=== PATIENT | female | born 1965 | race Caucasian/White ===

== ENCOUNTER 2016-04-20 17:09 | Emergency (ER) | payer OTHER ==
[~2016-04-20] VITALS: Ht 162.6 cm; Wt 72.9 kg
[~2016-04-20 17:09] MED LIST: ATOR-54 PO; METO1TAB55 PO; RANI150T3 PO
[2016-04-20 17:12] VITALS: TEMP 36.7; Ht 162.6 cm; Wt 72.9 kg
[2016-04-20] MEDS ORDERED: HYDROCODONE/ACETAMOPHEN 5/325MG TAB PO STA (17:27)
[2016-04-20] MEDS ORDERED: ONDANSETRON 4MG OD TAB PO STA (17:27)
[2016-04-20] MEDS ORDERED: DEXL30CA5 PO (17:30)
[2016-04-20] MEDS ORDERED: DEXL60CA4 PO (17:34)
--- NOTE | 2016-04-20 17:49 | DIAGNOSTIC IMAGING REPORT ---
RIGHT HAND 3 VIEWS CLINICAL HISTORY: Right hand pain. No reported history of trauma. FINDINGS: 3 views of the right hand are obtained. No prior studies are available for comparison at the time of dictation. The skeletal structures are well mineralized. No fracture is seen. Mild degenerative narrowing is present at the radiocarpal articulation. The joint spaces of the hand are preserved. The overlying soft tissues are within normal limits. IMPRESSION: No acute bony abnormality is seen in the right hand. Electronically signed by: Mohit Garsia M.D. 04/20/2016 5:48 PM Dictated Date/Time: 04/20/2016 5:46 PM
--- NOTE | 2016-04-20 17:56 | EMERGENCY ROOM VISIT NOTE ---
ED Visit Note First contact with patient: 17:14 CHIEF COMPLAINT: Right hand pain HISTORY OF PRESENT ILLNESS: This 50-year-old female presents the ER with chief complaint of right hand pain. The patient states that the pain is mainly in the thumb and index finger. The patient denies any injury to the finger or hand. The patient states that she woke up this morning with the pain. She does admit that she uses her hands a lot at work. She is right-hand dominant. She denies any prior surgeries to her wrist or hand. REVIEW OF SYSTEMS: GENERAL: No fever or chills, easy fatigue, loss of appetite, or significant weight change. NEUROLOGICAL: No headache, change in mental status, weakness, numbness, or dizziness.. PMH: The patient's EMR was reviewed. There are no changes from prior visit. Please see chronic problem list SOCIAL HISTORY: Patient lives with her . The patient admits to tobacco use but denies any alcohol use. PHYSICAL EXAM: Vital Signs: Were reviewed Reviewed Nurse's notes. GENERAL: 50- year-old white female appears in no acute distress. MENTAL Status: Alert and oriented 3. RIGHT HAND: Gross bony deformity noted. There is slight swelling noted over the first and second metacarpal region. The skin is intact. Flexion and extension of the fingers is full and strong. EMERGENCY DEPARTMENT COURSE: The patient was evaluated. The patient was given [place] 5/325 mg and Zofran 4 mg ODT for associated nausea. X-ray of the right hand was ordered and interpreted by the radiologist and myself. DIAGNOSTICS:RIGHT HAND 3 VIEWS CLINICAL HISTORY: Right hand pain. No reported history of trauma. FINDINGS: 3 views of the right hand are obtained. No prior studies are available for comparison at the time of dictation. The skeletal structures are well mineralized. No fracture is seen. Mild degenerative narrowing is present at the radiocarpal articulation. The joint spaces of the hand are preserved. The overlying soft tissues are within normal limits. IMPRESSION: No acute bony abnormality is seen in the right hand. Electronically signed by: Mohit Garsia M.D. 04/20/2016 5:48 PM Dictated Date/Time: 04/20/2016 5:46 PM The patient was informed of the findings. The patient was placed in a thumb spica splint and discharged home in stable condition. DIAGNOSIS: Right hand pain DISCHARGE INSTRUCTIONS & TREATMENT: Keep hand in splint except for bathing until pain is tolerable without it. Ice intermittently to the affected area after repetitive use. Ibuprofen 600 mg every 6 hours with food for pain. Take [place] as needed for more severe pain. Do not drive while taking the [place]. Take Zofran as needed for associated nausea. If symptoms are not improving in 4 -5 days, follow-up with [facility] orthopedics Problem List Medical Problems: (1) Abdominal pain Status: Resolved (2) Chest pain Status: Resolved (3) Chest pain Status: Resolved (4) Dehydration Status: Resolved (5) Endometriosis Status: Chronic (6) Migraine Status: Chronic (7) Migraine Status: Resolved (8) Migraine Status: Resolved (9) Nausea & vomiting Status: Resolved (10) Vomiting Status: Resolved Surgical Problems: (1) H/O: hysterectomy Status: Resolved Current/Historical Medications Scheduled Atorvastatin (Lipitor), 20 MG PO QPM Dexlansoprazole (Dexilant), 60 MG PO QAM Metoclopramide Hcl (Reglan), 10 MG PO BID Allergies Coded Allergies: Aspirin (Verified Allergy, Intermediate, HIVES; HAS TOLERATED IBUPROFEN, ) Latex1 -Allergic Contact Dermititis (Verified Allergy, Intermediate, BROKE OUT WHEN TOUCHED LATEX, 04/20/16) Neomycin (Verified Allergy, Mild, 04/20/16) Penicillins (Verified Allergy, Mild, 04/20/16) Bacitracin (Verified Allergy, Unknown, SWELLING AND 3DEGREE MELO, 04/20/16) Tramadol (Verified Allergy, Unknown, VOMITTING, 04/20/16) Hydrocodone (Verified Adverse Reaction, Intermediate, patient states she gets sick to her stomach, 04/20/16) Vital Signs Date Time Temp Pulse Resp B/P Pulse Ox O2 Delivery O2 Flow Rate FiO2 04/20/16 17:12 36.7 93 20 157/94 99 Room Air Medications Administered Medications (Trade) Dose Ordered Sig/Leslie Route Start Time Stop Time Status Last Admin Dose Admin Acetaminophen/ Hydrocodone Bitart ([place] 5/325 Tab) 1 tab NOW STAT PO 04/20/16 17:27 04/20/16 17:29 DC 04/20/16 17:45 1 TAB Ondansetron HCl (Zofran Odt) 4 mg NOW STAT PO 04/20/16 17:27 04/20/16 17:29 DC 3/6/17 17:45 4 MG Departure Information Referrals All Leonardo M.D. (PCP) Patient Instructions [facility]
[2016-04-20] MEDS ORDERED: ONDA4TAB10 SL (17:58)
[2016-04-20] MEDS ORDERED: HYDR-5688 PO (17:58)
[2016-04-20 18:10] VITALS: BP 136/84; PULSE 80; O2SAT 99
== END 2016-04-20 18:12 | disposition home or self-care (01) ==
LOC: C.EDB 17:10 → C.EDD 18:12
DX: M79.641 Pain in right hand (principal)

== ENCOUNTER 2016-05-01 20:43 | Emergency (ER) | payer OTHER ==
[~2016-05-01] VITALS: Ht 162.6 cm; Wt 72.6 kg
[~2016-05-01 20:43] MED LIST changes: +DEXL60CA4 PO; +HYDR-5688 PO; +ONDA4TAB10 SL; -RANI150T3 PO
[2016-05-01 20:50] VITALS: TEMP 37; Ht 162.6 cm; Wt 72.6 kg
[2016-05-01] MEDS ORDERED: OXYCODONE/ACETAMINOPHEN 5-325 TAB PO STA (21:09)
[2016-05-01] MEDS ORDERED: OMEP40CA41 PO (21:41)
--- NOTE | 2016-05-01 21:43 | DIAGNOSTIC IMAGING REPORT ---
RIGHT KNEE 3 VIEWS CLINICAL HISTORY: Right knee pain Right pain COMPARISON: None. DISCUSSION: The bones and joint spaces appear intact. There is no evidence of fracture, dislocation or bony disease. There is no evidence for soft tissue swelling. IMPRESSION: Negative study. Electronically signed by: Vicente Menjivar M.D. 05/01/2016 9:42 PM Dictated Date/Time: 05/01/2016 9:41 PM
[2016-05-01] MEDS ORDERED: OXYC-57 PO (21:50)
[2016-05-01] MEDS ORDERED: PERCOCET HOME PACK PO STA (21:52)
--- NOTE | 2016-05-01 21:52 | EMERGENCY ROOM VISIT NOTE ---
History First contact with patient: 21:02 Chief Complaint: KNEEPAIN Stated Complaint: R KNEE PAIN History of Present Illness The patient is a 50 year old female who presents to the Emergency Room via private vehicle with complaints of "right knee pain". The patient states that earlier this morning, around 7:50 PM, she was asked in her car, and felt her right knee pop. She states that the right anterior knee, particularly the inferior region is a location of the pain that she rates as a 9/10. She denies any numbness or tingling in the distal extremity. Review of Systems A complete 6-point Review of Systems was discussed with the patient, with pertinent positives and negatives listed in the History of Present Illness. All remaining Review of Systems questions can be considered negative unless otherwise specified. Past Medical/Surgical History Medical Problems: (1) Abdominal pain (2) Chest pain (3) Chest pain (4) Dehydration (5) Endometriosis (6) Migraine (7) Migraine (8) Migraine (9) Nausea & vomiting (10) Vomiting Surgical Problems: (1) H/O: hysterectomy Family History Cancer Gallbladder disease Kidney disease or stones Social History Smoking Status: Current Every Day Smoker Alcohol Use: none Drug Use: marijuana Marital Status: Housing Status: lives with significant other Occupation Status: employed Current/Historical Medications Scheduled Atorvastatin (Lipitor), 20 MG PO QPM Metoclopramide Hcl (Reglan), 10 MG PO BID Omeprazole (Prilosec), 40 MG PO QAM Ondasetron Odt (Zofran Odt), 4 MG SL Q6H Scheduled PRN Oxycodone/Acetaminophen 5MG/325MG (Percocet 5MG/325MG), 1 TAB PO Q4H PRN for Pain Allergies Coded Allergies: Aspirin (Verified Allergy, Intermediate, HIVES; HAS TOLERATED IBUPROFEN, ) Latex1 -Allergic Contact Dermititis (Verified Allergy, Intermediate, BROKE OUT WHEN TOUCHED LATEX, 05/01/16) Neomycin (Verified Allergy, Mild, 05/01/16) Penicillins (Verified Allergy, Mild, 05/01/16) Bacitracin (Verified Allergy, Unknown, SWELLING AND 3DEGREE MELO, 05/01/16 ) Tramadol (Verified Allergy, Unknown, VOMITTING, 05/01/16) Hydrocodone (Verified Adverse Reaction, Intermediate, patient states she gets sick to her stomach, 05/01/16) Physical Exam Vital Signs Date Time Temp Pulse Resp B/P Pulse Ox O2 Delivery O2 Flow Rate FiO2 05/01/16 22:16 86 18 156/87 96 05/01/16 20:50 37.0 89 18 156/87 96 Room Air Physical Exam VITAL SIGNS - Vital signs and nursing notes were reviewed. Patient is afebrile , she is hypertensive at 156/87, she is not tachycardic and is saturating well on room air 96%. GENERAL -50-year-old female appearing her stated age who is in no acute distress. Communicates well with provider and answers questions appropriately. SKIN - Without rashes. No petechial rashes or evidence of an integument break overlying the right knee. EXTREMITIES - No clubbing or peripheral cyanosis. No pretibial edema present. She is neurovascularly intact in the right lower extremity. Potentially positive anterior drawer, with increased tenderness with this modality. No laxity medially or laterally. Range of motion of the right knee, particularly flexion is limited secondary to pain. +5/5 strength noted in UE/LE bilaterally. Patient is neurovascularly intact in the right lower extremity. Medical Decision & Procedures ER Provider Diagnostic Interpretation: RIGHT KNEE 3 VIEWS CLINICAL HISTORY: Right knee pain Right pain COMPARISON: None. DISCUSSION: The bones and joint spaces appear intact. There is no evidence of fracture, dislocation or bony disease. There is no evidence for soft tissue swelling. IMPRESSION: Negative study. Electronically signed by: Vicente Menjivar M.D. 05/01/2016 9:42 PM Dictated Date/Time: 05/01/2016 9:41 PM Medications Administered Medications (Trade) Dose Ordered Sig/Leslie Route Start Time Stop Time Status Last Admin Dose Admin Oxycodone/ Acetaminophen (Percocet 5-325mg Tab) 1 tab NOW STAT PO 05/01/16 21:09 05/01/16 21:11 DC 05/01/16 21:38 1 TAB Oxycodone/ Acetaminophen (Percocet 5/ 325MG Home Pack) 1 homepack UD STAT PO 05/01/16 21:52 05/01/16 21:53 DC 05/01/16 22:09 1 HOMEPACK Medical Decision Patient was seen and evaluated as above. After obtaining a thorough history and physical examination the patient presents with what appears to be right knee pain. Previous visit was reviewed. Patient requests something for pain therefore was given 1 Percocet tablet, as she notes that other types of medication will make her sick. Radiograph was obtained with results as above. No acute fracture. I suspect the patient may have injured the anterior cruciate ligament. She was placed in a knee immobilizer, and declined crutches , noting that she had these at home. She was given a home pack for Percocet with a short prescription sent to her pharmacy. She was checked in the [place] drug monitoring system, and no red flags were identified. While she was here, she was given 1 Percocet with excellent relief of her pain. She was also given ice packs. The patient was educated upon management, and states that she follows with Dr. jansen above for the left knee and notes she has an appointment coming up in the near future. I informed her to keep that appointment, and try to establish one sooner if possible. She is to not bear any weight on the affected knee. She was educated upon management, had questions answered prior to discharge, was educated upon worrisome symptoms in which to return, and was discharged home in good condition. In the evaluation and treatment of this patient, the following differential diagnoses were considered: Patellar Fracture, Tibial Plateau Fracture, Distal Femur Fracture, ACL Injury, PCL Injury, Collateral Ligament Injury, Pes Anserine Bursitis, [place] Fracture. [place] Drug Monitoring Program Search Results: patient reviewed within database, no issues identified Impression Primary Impression: Right knee pain Departure Information Dispostion Home / Self-Care Condition GOOD Prescriptions Oxycodone/Acetaminophen 5MG/325MG (PERCOCET 5MG/325MG) Tab 1 TAB PO Q4H Y for Pain, #15 TAB For Initial Treatment Prov: Mendez Esquivel PA-C 05/01/16 Referrals All Leonardo M.D. (PCP) Juan Taylor M.D. Patient Instructions [facility] Additional Instructions You have been treated in the Emergency Department for Knee Pain. You have received pain medicine in the emergency department which impairs your ability to operate a vehicle. It is illegal for you to drive after receiving these medicines. You have been prescribed Percocet to be used for pain control. This is a narcotic medication. You cannot drive or consume alcohol while on this medicine. This medicine should only be used for pain that cannot be controlled with dbyj-fuz-maproou pain medicines. DO NOT TAKE THIS WITH TYLENOL IT ALREADY HAS IT IN IT!!! For pain control, you can use the following [id number] medicines (if >12 yo): - Regular strength (200 mg/tab) Advil (ibuprofen) 1-2 tabs every 4-6 hours as needed. Do not exceed a dose of 3200 mg per day. If this is a recent injury (<24 hrs), ice can be applied to the area of pain for the first 3 days to help decrease pain and inflammation. Ice massages can be performed by freezing water in a paper cup, peeling back the cup to expose the ice and then massaging over the affected area. You have been provided the number for an Orthopaedic Surgeon. You should call this number as soon as possible to establish a follow-up visit from today's Emergency Department visit. Keep the knee brace in place until cleared by Orthopedics. Use the crutches you have to keep ALL weight off of the knee until weight bearing is tolerable. Return to the Emergency Department if your current symptoms worsen despite treatment course outlined above. Please return to the emergency department with any new/concerning symptoms. Problem Qualifiers Primary Impression: Right knee pain Chronicity: acute Qualified Codes: M25.561 - Pain in right knee
[2016-05-01 22:16] VITALS: BP 156/87; PULSE 86; O2SAT 96
== END 2016-05-01 22:17 | disposition home or self-care (01) ==
LOC: C.EDB 20:44 → C.EDD 22:17
DX: M25.561 Pain in right knee (principal); F17.200 Nicotine dependence, unspecified, uncomplicated; Z90.710 Acquired absence of both cervix and uterus

== ENCOUNTER → 2016-06-02 | Outpatient (CLI) | payer OTHER ==
[~2016-06-02] MED LIST changes: -HYDR-5688 PO; +LPT/20 PO; +METO10TA3 PO; +OMEP40CA41 PO; +OXYC-57 PO
--- NOTE | 2016-06-02 11:41 | DIAGNOSTIC IMAGING REPORT ---
Right upper quadrant ultrasound BILIARY ABDOMEN LIMITED CLINICAL HISTORY: R11.2 Severe nausea and vomiting that has lasted a long time nausea. Pain. TECHNIQUE: Ultrasound COMPARISON STUDY: 05/29/2015 FINDINGS: Small gallbladder polyp measuring 5 mm. No shadowing gallstones. Normal caliber bile ductal or common bile duct 5 mm. Mild fatty infiltration of liver. Pancreas and right kidney are unremarkable. No evidence for hydronephrosis. IMPRESSION: Small gallbladder polyp. Normal caliber bile duct. Mild fatty infiltration of liver. Electronically signed by: Vicente Menjivar M.D. 06/02/2016 11:39 AM Dictated Date/Time: 06/02/2016 11:37 AM
== END | disposition home or self-care (01) ==
LOC: C.ULTR 11:07
PROVIDERS: ATTEND Registered Nurse
DX: R11.2 Nausea with vomiting, unspecified (principal)

== ENCOUNTER → 2016-06-15 | Outpatient (CLI) | payer OTHER ==
[~2016-06-15] MED LIST changes: +SINCALIDE INJ 1.4 MCG in SODIUM CHLORIDE 0.9% 100ML 100 ML IV ONE
--- NOTE | 2016-06-15 12:24 | DIAGNOSTIC IMAGING REPORT ---
NUCLEAR MEDICINE HEPATOBILIARY SCAN WITH EJECTION FRACTION HISTORY: Pain. Nausea. R10.13 Acute epigastric painR93.8 Abnormal [id number] COMPARISON: Ultrasound dated 06/02/2016 TECHNIQUE: Immediately following the intravenous administration of 5.5 mCi Tc-99m Choletec, dynamic anterior abdominal imaging pre/post 1.4 mcg of Kinevac was performed. FINDINGS: Uniform hepatic tracer accumulation is shown. Prompt intrahepatic biliary excretion is seen. The gallbladder, common bile duct, and small bowel are all visualized by 20 minutes. This appearance represents the normal sequence of biliary excretion. The gallbladder ejection fraction following administration of Kinevac was 89 % (normal >35%). IMPRESSION: 1. No evidence for cystic duct obstruction. 2. Gallbladder ejection fraction calculated to be 89 %. Electronically signed by: Vicente Menjivar M.D. 06/15/2016 12:23 PM Dictated Date/Time: 06/15/2016 12:21 PM
== END | disposition home or self-care (01) ==
LOC: C.NUCL 10:01
PROVIDERS: ATTEND Registered Nurse
DX: R93.8 Abnormal findings on diagnostic imaging of other specified body structures (principal); R10.13 Epigastric pain

== ENCOUNTER → 2016-06-23 | Outpatient (CLI) | payer OTHER ==
[~2016-06-23] MED LIST changes: -SINCALIDE INJ 1.4 MCG in SODIUM CHLORIDE 0.9% 100ML 100 ML IV ONE
[2016-06-23 12:16] LABS: BASO % 0.5 %; BASO ABS # 0.04 K/uL (0-0.2); COMPLETE YES; HEMATOCRIT 42.5 % (37-47); IG% 0.1 %; LYMPH % 25.8 %; LYMPH ABS # 2.11 K/uL (1.2-3.4); MEAN CELL VOLUME 92.8 fL (80-100); MEAN CORPUSCULAR HEMOGLOBIN 30.8 pg (25-34); MEAN CORPUSCULAR HGB CONC 33.2 g/dl (32-36); MEAN PLATELET VOLUME 12.5 fL (7.4-10.4); MONO % 6.9 %; NEUT % 62.7 %; PLATELET COUNT 260 K/uL (130-400); RED BLOOD COUNT 4.58 M/uL (4.2-5.4); WHITE BLOOD COUNT 8.17 K/uL (4.8-10.8)
[2016-06-23 12:28] LABS: ALT/SGPT 42 U/L (12-78); AST/SGOT 15 U/L (15-37); BLOOD UREA NITROGEN 8 mg/dl (7-18); CARBON DIOXIDE 27 mmol/L (21-32); CHLORIDE 108 mmol/L (98-107); CREATININE 0.83 mg/dl (0.60-1.20); GLUCOSE 103 mg/dl (70-99); POTASSIUM 4.2 mmol/L (3.5-5.1); SODIUM 143 mmol/L (136-145)
[2016-06-23 12:34] LABS: ALB/GLOB RATIO 1.2 (0.9-2); ALKALINE PHOSPHATASE 125 U/L (45-117); CHOLESTEROL 221 mg/dl (0-200); CHOLESTEROL/HDL RATIO 3.9; HDL CHOLESTEROL 56 mg/dl; LDL CHOLESTEROL CALCULATED 136 mg/dl; TRIGLYCERIDES 145 mg/dl (0-150); VERY LOW DENSITY LIPOPROT CALC 29 mg/dl
== END | disposition home or self-care (01) ==
LOC: C.LABBFT 07:54
PROVIDERS: ATTEND Registered Nurse
DX: E78.5 Hyperlipidemia, unspecified (principal); R11.2 Nausea with vomiting, unspecified

== ENCOUNTER → 2016-07-02 | Outpatient (CLI) | payer OTHER ==
[2016-07-02 17:42] LABS: FERRITIN 27.2 ng/ml (8.0-388.0)
== END | disposition home or self-care (01) ==
LOC: C.LABBFT 11:34
PROVIDERS: ATTEND Physician Assistant Medical
DX: R11.2 Nausea with vomiting, unspecified (principal); M79.609 Pain in unspecified limb

== ENCOUNTER → 2016-07-10 | Outpatient (CLI) | payer OTHER ==
--- NOTE | 2016-07-10 15:30 | DIAGNOSTIC IMAGING REPORT ---
ABDOMEN AND PELVIS CT WITH IV AND ORAL CONTRAST CT DOSE: 496.75 mGycm HISTORY: Left upper quadrant abdominal pain. TECHNIQUE: Multiaxial CT images of the abdomen and pelvis were performed following the use of intravenous and oral contrast. COMPARISON STUDY: Abdominal ultrasound 06/02/2016. Abdomen and pelvis CT 11/22/2013. FINDINGS: The lung bases are clear. No suspicious lytic or blastic osseous lesions. The gallbladder, spleen, adrenal glands, and pancreas are unremarkable. Stable subcentimeter hypodense lesions seen within the liver and kidneys. Dominant hypodense lesion within the right kidney measures 9 mm. These are too small to characterize. There is a punctate nonobstructing stone within each kidney. No hydronephrosis. The bladder is unremarkable. The uterus is surgically absent. No bowel wall thickening or obstruction. Normal appendix. IMPRESSION: 1. No significant change compared to the prior study. 2. Bilateral nephrolithiasis. No hydronephrosis. 3. No bowel wall thickening or obstruction. 4. Normal appendix. Electronically signed by: Kirill Lopez M.D. 07/10/2016 3:28 PM Dictated Date/Time: 07/10/2016 3:19 PM
== END | disposition home or self-care (01) ==
LOC: C.CTS 12:52
PROVIDERS: ATTEND Internal Medicine
DX: R10.12 Left upper quadrant pain (principal); N20.0 Calculus of kidney

== ENCOUNTER → 2016-07-21 | Outpatient (CLI) | payer OTHER | END | disposition home or self-care (01) | LOC: C.LABBFT 11:21 | PROVIDERS: ATTEND Registered Nurse | DX: R10.12 Left upper quadrant pain (principal); R93.8 Abnormal findings on diagnostic imaging of other specified body structures ==

== ENCOUNTER → 2016-09-02 | Outpatient (CLI) | payer OTHER ==
[2016-09-02 12:43] LABS: ALT/SGPT 28 U/L (12-78); AST/SGOT 15 U/L (15-37); BLOOD UREA NITROGEN 8 mg/dl (7-18); BUN/CREATININE RATIO 9.6 (10-20); CALCIUM 9.8 mg/dl (8.5-10.1); CARBON DIOXIDE 29 mmol/L (21-32); CHLORIDE 110 mmol/L (98-107); CREATININE 0.83 mg/dl (0.60-1.20); GLUCOSE 102 mg/dl (70-99); POTASSIUM 3.8 mmol/L (3.5-5.1); SODIUM 143 mmol/L (136-145)
[2016-09-02 12:46] LABS: ALB/GLOB RATIO 1.2 (0.9-2); ALKALINE PHOSPHATASE 110 U/L (45-117)
== END | disposition home or self-care (01) ==
LOC: C.LABBFT 08:38
PROVIDERS: ATTEND Nurse Practitioner
DX: E78.5 Hyperlipidemia, unspecified (principal); E55.9 Vitamin D deficiency, unspecified

== ENCOUNTER 2016-09-22 19:27 | Emergency (ER) | payer OTHER ==
[~2016-09-22] VITALS: Ht 162.6 cm; Wt 73.7 kg
[~2016-09-22 19:27] MED LIST changes: -DEXL60CA4 PO; -LPT/20 PO; -METO10TA3 PO
[2016-09-22 19:29] VITALS: TEMP 36.6; Ht 162.6 cm; Wt 73.7 kg
[2016-09-22] MEDS ORDERED: FAMOTIDINE 20MG/102 ML D5W IV STA (20:03)
[2016-09-22] MEDS ORDERED: GI COCKTAIL PO STA (20:03)
[2016-09-22 20:11] LABS: BASO % 0.6 %; BASO ABS # 0.07 K/uL (0-0.2); COMPLETE YES; EOS % 4.4 %; HEMATOCRIT 41.3 % (37-47); IG% 0.3 %; LYMPH % 32.3 %; LYMPH ABS # 3.91 K/uL (1.2-3.4); MEAN CELL VOLUME 92.2 fL (80-100); MEAN CORPUSCULAR HEMOGLOBIN 31.3 pg (25-34); MEAN CORPUSCULAR HGB CONC 33.9 g/dl (32-36); MEAN PLATELET VOLUME 11.8 fL (7.4-10.4); MONO % 8.9 %; NEUT % 53.5 %; PLATELET COUNT 264 K/uL (130-400); RED BLOOD COUNT 4.48 M/uL (4.2-5.4); WHITE BLOOD COUNT 12.12 K/uL (4.8-10.8)
[2016-09-22] MEDS ORDERED: ALUMINUM/MAGNESIUM SUSP 30 ML UDC ONE (20:13)
[2016-09-22] MEDS ORDERED: LIDOCAINE HCL 2% VISC SOLN 20 ML UDC ONE (20:13)
--- NOTE | 2016-09-22 20:16 | EMERGENCY ROOM VISIT NOTE ---
History Report prepared by Bhaskar: Camilla Saldana Under the Supervision of: Dr. Trell Gonzalez M.D. First contact with patient: 19:56 Chief Complaint: CHEST PAIN Stated Complaint: CHEST PAIN History of Present Illness The patient is a 51 year old female who presents to the Emergency Room with complaints of first intermittent left sided chest pain that has now become persistent tonight. She currently rates her discomfort as a 9/10 in severity. The patient states that Wednesday night she developed left sided chest pain, but states that it subsided. She states that last night the pain came back and again was intermittent. The patient states that when her pain returned this evening around 1830 it was persistent. She states that she was sitting on the computer when her pain began. The patient states that her pain radiates from her left side to her right. She describes the pain as a gas bubble, stating that she feels she needs to belch, but cannot. The patient denies taking any aspirin, stating that she breaks out in hives with using aspirin. She denies the pain coming on with exertion. The patient denies any history of gallstones , hypertension, diabetes, or a previous CA. She reports a history of GERD, but denies her symptoms feeling similar to her GERD. The patient reports a surgical history of a hysterectomy. She notes a history of high cholesterol. The patient reports a family history of cancer. She states that she smokes 1 pack of cigarettes per day. The patient denies any recent long plane flights, recent surgeries, or family or personal history of blood clots. She denies any shortness of breath, dizziness, diaphoresis, nausea, or swelling in her lower extremities. Source of History: patient Onset: tonight Position: chest (left) Symptom Intensity: 9/10 Quality: other (gas bubble) Timing: other (persistent) Associated Symptoms: No diaphoresis, No SOB, No nausea Review of Systems See HPI for pertinent positives and negatives. A total of ten systems were reviewed and were otherwise negative. Past Medical & Surgical Medical Problems: (1) Abdominal pain (2) Chest pain (3) Chest pain (4) Dehydration (5) Endometriosis (6) Migraine (7) Migraine (8) Migraine (9) Nausea & vomiting (10) Vomiting Surgical Problems: (1) H/O: hysterectomy Family History Cancer Gallbladder disease Kidney disease or stones Social History Smoking Status: Current Every Day Smoker Alcohol Use: none Drug Use: marijuana Marital Status: Housing Status: lives with significant other Occupation Status: employed Current/Historical Medications Scheduled Atorvastatin (Atorvastatin Calcium), 20 MG PO DAILY Dexlansoprazole (Dexilant), 60 MG PO QAM Metoclopramide HCl (Metoclopramide HCl), 10 MG PO ACHS Allergies Coded Allergies: Aspirin (Verified Allergy, Intermediate, HIVES; HAS TOLERATED IBUPROFEN, ) Latex1 -Allergic Contact Dermititis (Verified Allergy, Intermediate, BROKE OUT WHEN TOUCHED LATEX, 05/01/16) Neomycin (Verified Allergy, Mild, 05/01/16) Penicillins (Verified Allergy, Mild, 05/01/16) Bacitracin (Verified Allergy, Unknown, SWELLING AND 3DEGREE MELO, 05/01/16 ) Tramadol (Verified Allergy, Unknown, VOMITTING, 05/01/16) Hydrocodone (Verified Adverse Reaction, Intermediate, patient states she gets sick to her stomach, 05/01/16) Physical Exam Vital Signs Date Time Temp Pulse Resp B/P (MAP) Pulse Ox O2 Delivery O2 Flow Rate FiO2 09/22/16 23:36 62 18 158/85 96 09/22/16 23:10 72 18 119/77 97 Room Air 09/22/16 21:56 74 20 125/83 97 Room Air 09/22/16 21:16 69 20 125/80 95 Room Air 09/22/16 20:54 69 20 132/91 97 Room Air 09/22/16 20:19 79 09/22/16 19:29 36.6 101 20 154/87 97 Room Air Physical Exam GENERAL: Awake, alert, well-appearing, in no distress HENT: Normocephalic, atraumatic. Mucous membranes are dry. EYES: Normal conjunctiva. Sclera non-icteric. NECK: Supple. No nuchal rigidity. FROM. No JVD. RESPIRATORY: Clear to auscultation. CARDIAC: Regular rate, normal rhythm. Extremities warm and well perfused. Pulses equal. ABDOMEN: Soft, non-distended. Mild right upper quadrant and epigastric ttp, no peritoneal signs. No rebound or guarding. No masses. RECTAL: Deferred. MUSCULOSKELETAL: Chest examination reveals mild reproducible pain in the right chest wall. The back is symmetrical on inspection without obvious abnormality. There is no CVA tenderness to palpation. No joint edema. LOWER EXTREMITIES: Calves are equal size bilaterally and non-tender. No edema. No discoloration. NEURO: Normal sensorium. No sensory or motor deficits noted. SKIN: No rash or jaundice noted. Medical Decision & Procedures ER Provider Diagnostic Interpretation: X-ray: Per my interpretation, radiologist review. CHEST ONE VIEW PORTABLE HISTORY: 51 years-old Female cp COMPARISON: 05/07/2015 TECHNIQUE: Portable upright AP view of the chest FINDINGS: Cardiomediastinal and hilar silhouettes are within normal limits. No pneumothorax, pleural effusion or focal airspace consolidation. Again, there is increased lucency of the lungs bilaterally suggesting underlying emphysema. The bones are grossly intact. IMPRESSION: No acute cardiopulmonary process. The above report was generated using voice recognition software. It may contain grammatical, syntax or spelling errors. Electronically signed by: Uriel Lu M.D. 09/22/2016 8:34 PM Dictated Date/Time: 09/22/2016 8:34 PM Laboratory Results 09/22/16 19:45 Red Blood Count 4.48, Mean Corpuscular Volume 92.2, Mean Corpuscular Hemoglobin 31.3, Mean Corpuscular Hemoglobin Concent 33.9, Mean Platelet Volume 11.8, Neutrophils (%) (Auto) 53.5, Lymphocytes (%) (Auto) 32.3, Monocytes (%) (Auto) 8.9, Eosinophils (%) (Auto) 4.4, Basophils (%) (Auto) 0.6, Neutrophils # (Auto) 6.49, Lymphocytes # (Auto) 3.91, Monocytes # (Auto) 1.08, Eosinophils # (Auto) 0.53, Basophils # (Auto) 0.07 09/22/16 19:45 Test 09/22/16 19:45 09/22/16 22:18 White Blood Count 12.12 K/uL (4.8-10.8) Red Blood Count 4.48 M/uL (4.2-5.4) Hemoglobin 14.0 g/dL (12.0-16.0) Hematocrit 41.3 % (37-47) Mean Corpuscular Volume 92.2 fL (80-100) Mean Corpuscular Hemoglobin 31.3 pg (25-34) Mean Corpuscular Hemoglobin Concent 33.9 g/dl (32-36) Platelet Count 264 K/uL (130-400) Mean Platelet Volume 11.8 fL (7.4-10.4) Neutrophils (%) (Auto) 53.5 % Lymphocytes (%) (Auto) 32.3 % Monocytes (%) (Auto) 8.9 % Eosinophils (%) (Auto) 4.4 % Basophils (%) (Auto) 0.6 % Neutrophils # (Auto) 6.49 K/uL (1.4-6.5) Lymphocytes # (Auto) 3.91 K/uL (1.2-3.4) Monocytes # (Auto) 1.08 K/uL (0.11-0.59) Eosinophils # (Auto) 0.53 K/uL (0-0.5) Basophils # (Auto) 0.07 K/uL (0-0.2) RDW Standard Deviation 49.1 fL (36.4-46.3) RDW Coefficient of Variation 14.4 % (11.5-14.5) Immature Granulocyte % (Auto) 0.3 % Immature Granulocyte # (Auto) 0.04 K/uL (0.00-0.02) D-Dimer 270 ug/L FEU (0-500) Anion Gap 7.0 mmol/L (3-11) Est Creatinine Clear Calc Drug Dose 81.7 ml/min Estimated GFR () 98.2 Estimated GFR (Non- 84.7 BUN/Creatinine Ratio 4.5 (10-20) Calcium Level 9.4 mg/dl (8.5-10.1) Total Bilirubin 0.3 mg/dl (0.2-1) Direct Bilirubin < 0.1 mg/dl (0-0.2) Aspartate Amino Transf (AST/SGOT) 19 U/L (15-37) Alanine Aminotransferase (ALT/SGPT) 47 U/L (12-78) Alkaline Phosphatase 123 U/L (45-117) Total Protein 7.3 gm/dl (6.4-8.2) Albumin 4.0 gm/dl (3.4-5.0) Lipase 307 U/L (73-393) Troponin I < 0.015 ng/ml (0-0.045) Laboratory results reviewed by me Medications Administered Medications (Trade) Dose Ordered Sig/Leslie Route Start Time Stop Time Status Last Admin Dose Admin Famotidine (Pepcid 20mg/100 ml) 20 mg ONE STAT IV 09/22/16 20:03 09/22/16 20:07 DC 09/22/16 20:22 20 MG Al Hydroxide/Mg Hydroxide (Maalox Susp) 30 ml STK-MED ONCE .ROUTE 09/22/16 20:13 09/22/16 20:14 DC 09/22/16 20:21 30 ML Lidocaine HCl (Viscous Lidocaine 2% Soln) 20 ml STK-MED ONCE .ROUTE 09/22/16 20:13 09/22/16 20:14 DC 09/22/16 20:21 20 ML Nitroglycerin (Nitrostat Tab) 0.4 mg Q5M PRN SL 09/22/16 21:00 09/22/16 23:48 DC 09/22/16 21:06 0.4 MG Ketorolac Tromethamine (Toradol Inj) 30 mg NOW STAT IV 09/22/16 21:50 09/22/16 21:51 DC 09/22/16 21:56 30 MG ECG Indication: chest pain Rate (beats per minute): 77 Rhythm: normal sinus Findings: no acute ischemic change, other (normal axis) ED Course 2000: The patient was evaluated in room B2. A complete history and physical exam was performed. 2002: Ordered GI Cocktail 24 ml PO, Famotidine 20 mg IV. 2099: Ordered Nitroglycerin 0.4 mg SL. 2149: Ordered Toradol Inj 30 mg IV. 2205: I reevaluated the patient and she is resting comfortably. 5: I reevaluated the patient and she is doing well. I discussed all the exam findings with her and I discussed the treatment plan. She verbalized complete understanding and agreement. She is ready to go home. Medical Decision I reviewed the patient's past medical history, medications, and the nursing notes as described above. The patient's presentation and history were concerning for GERD, gastritis, costochondritis, ACS, pneumonia, bronchitis, undiagnosed COPD, PE. The patient is a 51 y/o woman who presents to the emergency department with chest pain that has been constant since 1830 per HPI. On arrival the patient is in NAD. AFVSS. Lungs CTAB. CP reproducible with palpation or right CW, epigastrim, RUQ. EKG unremarkable and trop 1 negative in setting of constant pain. LFTs unremarkable. Considering RUQ discomfort bedside RUQ US performed and negative for gallstones. Given GI cocktail and pepcid with marginal relief. Given toradal considering reproducible CW ttp and sx resolved. Well score, low risk. D-dimer sent and was negative thus making PE not likely. Delta troponin sent ~5 hours from onset of constant sx and was unchanged. EKG also repeated and unchanged. Heart score 2, low risk. ACS not likely. Sx most likley msk/ costochonrditis. Findings and plan for follow-up d/w patient. Patient agreeable and d/c'd per discharge instructions. Medication Reconcilliation Current Medication List: was personally reviewed by me Blood Pressure Screening Patient's blood pressure: Elevated blood pressure Blood pressure disposition: Elevated BP felt to be situational, Did not require urgent referral Impression Primary Impression: Chest pain Additional Impression: Chest wall pain Scribe Attestation The scribe's documentation has been prepared under my direction and personally reviewed by me in its entirety. I confirm that the note above accurately reflects all work, treatment, procedures, and medical decision making performed by me. Departure Information Dispostion Home / Self-Care Referrals All Leonardo M.D. (PCP) Forms HOME CARE DOCUMENTATION FORM, IMPORTANT VISIT INFORMATION Patient Instructions Chest Pain - [facility], ED Chest Pain Costochondritis, My [facility] Additional Instructions Please follow up with your primary care physician in the next 1-3 days. Otherwise, your exam, EKG, chest x-ray, lab results did not show signs of an emergent condition at this time. Take ibuprofen up to 600 mg every 6-8 hours as needed for pain. Heating pad for additional muscle relaxation. Return to the emergency department for worsening symptoms as described in the accompanying instructions. Problem Qualifiers
[2016-09-22 20:25] LABS: BLOOD UREA NITROGEN 4 mg/dl (7-18); BUN/CREATININE RATIO 4.5 (10-20); CALCIUM 9.4 mg/dl (8.5-10.1); CARBON DIOXIDE 28 mmol/L (21-32); CHLORIDE 107 mmol/L (98-107); CREATININE 0.81 mg/dl (0.60-1.20); GLUCOSE 92 mg/dl (70-99); POTASSIUM 3.4 mmol/L (3.5-5.1); SODIUM 142 mmol/L (136-145)
[2016-09-22] MEDS ORDERED: DEXL60CA4 PO (20:27)
[2016-09-22] MEDS ORDERED: METO10TA3 PO (20:27)
[2016-09-22] MEDS ORDERED: LPT/20 PO (20:27)
[2016-09-22 20:30] LABS: ALKALINE PHOSPHATASE 123 U/L (45-117); ALT/SGPT 47 U/L (12-78); AST/SGOT 19 U/L (15-37)
--- NOTE | 2016-09-22 20:36 | DIAGNOSTIC IMAGING REPORT ---
CHEST ONE VIEW PORTABLE HISTORY: 51 years-old Female cp COMPARISON: 05/07/2015 TECHNIQUE: Portable upright AP view of the chest FINDINGS: Cardiomediastinal and hilar silhouettes are within normal limits. No pneumothorax, pleural effusion or focal airspace consolidation. Again, there is increased lucency of the lungs bilaterally suggesting underlying emphysema. The bones are grossly intact. IMPRESSION: No acute cardiopulmonary process. The above report was generated using voice recognition software. It may contain grammatical, syntax or spelling errors. Electronically signed by: Uriel Lu M.D. 09/22/2016 8:34 PM Dictated Date/Time: 09/22/2016 8:34 PM
[2016-09-22] MEDS ORDERED: NITROGLYCERIN 0.4 MG SL PER TAB CHARGE SL PRN (21:00)
[2016-09-22] MEDS ORDERED: KETOROLAC TROMETHAMINE 30 MG/ML VIAL IV STA (21:50)
[2016-09-22 23:36] VITALS: BP 158/85; PULSE 62; O2SAT 96
== END 2016-09-22 23:36 | disposition home or self-care (01) ==
LOC: C.EDB 19:28
DX: R07.89 Other chest pain (principal); K21.9 Gastro-esophageal reflux disease without esophagitis; E78.00 Pure hypercholesterolemia, unspecified; G43.909 Migraine, unspecified, not intractable, without status migrainosus; F17.210 Nicotine dependence, cigarettes, uncomplicated; Z80.9 Family history of malignant neoplasm, unspecified; Z83.79 Family history of other diseases of the digestive system; Z84.1 Family history of disorders of kidney and ureter; Z79.899 Other long term (current) drug therapy

== ENCOUNTER → 2016-10-15 | Outpatient (CLI) | payer OTHER ==
[~2016-10-15] MED LIST changes: -ATOR-54 PO; +DEXL60CA4 PO; +LPT/20 PO; +METO10TA3 PO; -METO1TAB55 PO; -OMEP40CA41 PO; -ONDA4TAB10 SL; -OXYC-57 PO
--- NOTE | 2016-10-15 12:40 | MAMMOGRAPHY REPORT ---
BILATERAL DIGITAL DIAGNOSTIC MAMMOGRAM TOMOSYNTHESIS WITH CAD: 10/15/2016 CLINICAL HISTORY: The patient reports diffuse right breast numbness for approximately one month and i ntermittent pain. She denies any palpable lumps, nipple discharge, or other complaints. Family hist ory of breast cancer including her maternal grandmother and aunt. TECHNIQUE: Breast tomosynthesis in addition to standard 2D mammography was performed. Current study was also evaluated with a Computer Aided Detection (CAD) system. Bilateral CC and MLO 2-D and tomosy nthesis images were obtained. COMPARISON: No prior exams were available for comparison. BREAST COMPOSITION: The tissue of both breasts is heterogeneously dense, which may obscure small mas ses. FINDINGS: There is a gently lobulated circumscribed 15 mm mass within the left upper outer quadrant, for which ultrasound is recommended for further evaluation. The remainder of both breasts are negat delta, without suspicious masses, calcifications, or areas of architectural distortion noted. A circum scribed 7 mm mass with a fat density hilum is seen within the left upper outer quadrant, consistent w ith a benign intramammary lymph node. An ultrasound was not performed as the patient's insurance company would not authorize the ultrasound . The patient will need to return for ultrasound when authorization is obtained. IMPRESSION: ACR BI-RADS CATEGORY 0: INCOMPLETE EVALUATION: NEED ADDITIONAL IMAGING EVALUATION 1. Circumscribed 15 mm mass in the left upper outer quadrant, for which ultrasound is recommended. U ltrasound was not performed at the time of the diagnostic workup as the patient's insurance company w ould not authorize the ultrasound. The patient will need to return for ultrasound when authorization is obtained. 2. No mammographic evidence of malignancy in the right breast. No etiology for right breast numbnes s/pain evident. Recommend clinical follow-up. Ultrasound could be performed of the right breast whe n the patient returns for left breast ultrasound. The patient has been verbally notified of the results. Approximately 10% of breast cancers are not detected with mammography. A negative mammographic report should not delay biopsy if a clinically suggestive mass is present. Analilia Purdy M.D. /:10/15/2016 11:37:15 Dressmaker Garment Fitter: Niki FORRESTER)(Sarahi), [facility] letter sent: Addl Imaging 0 BI-RADS Code: ACR BI-RADS Category 0: Incomplete Evaluation: Need Additional Imaging Evaluation
== END | disposition home or self-care (01) ==
LOC: C.MAMM 10:23
PROVIDERS: ATTEND Nurse Practitioner
DX: R20.0 Anesthesia of skin (principal); N63 Unspecified lump in breast

== ENCOUNTER → 2016-10-27 | Outpatient (CLI) | payer OTHER ==
--- NOTE | 2016-10-27 15:12 | MAMMOGRAPHY REPORT ---
ULTRASOUND OF BOTH BREASTS: 10/27/2016 CLINICAL HISTORY: Indeterminate bilobed 1.5 cm mass in the left upper outer quadrant. Patient presen ts for sonographic characterization. Patient also has a symptom of numbness and pain along the infra mammary fold of the right breast. COMPARISON: Mammograms dated 10/15/2016. FINDINGS: Targeted ultrasound was performed in the upper outer quadrant of the left breast to evalua te for the bilobed partially circumscribed mammographic mass, and also along the inferior right breas t in the area of the inframammary fold, in the area of numbness and pain described by the patient. In the 2:00 left breast, 3 cm from the nipple, there is an isoechoic circumscribed parallel solid mas s measuring 1.5 x 0.6 x 0.8 cm. Although this could represent a fibroadenoma, definitive characteriz ation with tissue sampling is needed. Throughout the right inferior breast along the inframammary fold in the area of numbness and pain neo cribed by the patient, sonographically normal tissue is seen without a discrete solid or cystic mass. IMPRESSION: ACR BI-RADS CATEGORY 4: SUSPICIOUS - FOLLOW-UP RECOMMENDED 1. Ultrasound guided core needle biopsy is recommended for an indeterminate solid 1.5 cm mass in the 2:00 left breast. 2. There is no suspicious mammographic or targeted sonographic abnormality to explain the numbness a nd pain in the inferior right breast. Therefore, clinical follow-up is recommended, as biopsy of a c linically suspicious mass should not be precluded by negative imaging. These results and recommendations were discussed with the patient at the time of the exam. Delaney Garsia M.D. ay/:10/27/2016 12:28:55 Ore Crusher: Marita FORRESTER)(Sarahi), [facility] letter sent: Abnormal 4/5 BI-RADS Code: ACR BI-RADS Category 4: Suspicious
== END | disposition home or self-care (01) ==
LOC: C.MAMM 08:07
PROVIDERS: ATTEND Nurse Practitioner
DX: N63 Unspecified lump in breast (principal)

== ENCOUNTER → 2016-11-04 | Outpatient (CLI) | payer OTHER ==
--- NOTE | 2016-11-04 09:19 | Discharge Instructions ---
Discharge Instructions Procedure Procedure Date: Nov 04, 2016. Reason for visit: Left Mass Latex Allergy. Discharge Discharge Date: Nov 04, 2016. Discharge Diagnosis: status post breast biopsy Instructions Activity Recommendations: Additional Limitations (see below) Return to School/Work: no limitations Recommended Home Diet: No Limitations Provider Instructions: ACTIVITY RECOMMENDATIONS: * No lifting, pushing, pulling or exercising the affected side for three days. RETURN TO SCHOOL/WORK: * You may return to work/school after the procedure, but do not perform any strenuous activities for 24 to 48 hours. MEDICATIONS: * Tylenol (two 325 mg) every four to six hours if needed for mild pain (if not allergic to Tylenol). DIET: * Resume previous diet. SPECIAL CARE INSTRUCTIONS: * Keep biopsy site dry for 24 hours. May shower after 24 hours, but do not soak (bathe) incision. * May remove Tegaderm (plastic patch) tomorrow AFTER showering. * Leave the steri-strips on for one week. Allow the steri-strips to fall off by themselves. If not off after one week, you may remove them. You may place a Bandaid crosswise over the strips, if desired. * Apply ice 10 minutes on and 10 minutes off as needed. * Wear a bra at bedtime to sleep more comfortably for 2-3 days. * Your referring physician should have the results after approximately 5 to 7 business days. * Call for unusual bleeding, fever, drainage, etc or if you have any questions call during normal business hours or after hours call Dr Purdy, . FOLLOW UP VISIT: Follow-up with Referring Physician as scheduled. Allergies Coded Allergies: Aspirin (Verified Allergy, Intermediate, HIVES; HAS TOLERATED IBUPROFEN, ) Latex1 -Allergic Contact Dermititis (Verified Allergy, Intermediate, BROKE OUT WHEN TOUCHED LATEX, 05/01/16) Neomycin (Verified Allergy, Mild, 05/01/16) Penicillins (Verified Allergy, Mild, 05/01/16) Bacitracin (Verified Allergy, Unknown, SWELLING AND 3DEGREE MELO, 05/01/16 ) Tramadol (Verified Allergy, Unknown, VOMITTING, 05/01/16) Hydrocodone (Verified Adverse Reaction, Intermediate, patient states she gets sick to her stomach, 05/01/16) Ifeanyi Yanes Recommendations: Call your doctor if: * Temperature above 101 degrees * Pain not relieved by pain medicine ordered * There is increased drainage or redness from any incision * You have any unanswered questions or concerns. Your Doctors Instructions noted above were prepared by provider Analilia Purdy. Patient Signature Section: Patient Instructions Signature Page Geni Sands Patient (or Guardian) Signature/Date: I have read and understand the instructions given to me by my caregivers. Caregiver/RN/Doctor Signature/Date: The above-named patient and/or guardian has received patient instructions on this date. + Original Patient Signature Page (only) stays with chart. Please make copy for patient.
--- NOTE | 2016-11-04 15:17 | MAMMOGRAPHY REPORT ---
UNILATERAL LEFT DIGITAL DIAGNOSTIC MAMMOGRAM TOMOSYNTHESIS: 11/04/2016 CLINICAL HISTORY: Status post left breast biopsy. TECHNIQUE: Breast tomosynthesis in addition to standard 2D mammography was performed. Postprocedura l left CC and ML tomosynthesis images including C views were obtained. COMPARISON: Comparison is made to exams dated: 10/27/2016 ultrasound and 10/15/2016 mammogram - [facility]. BREAST COMPOSITION: The tissue of the left breast is heterogeneously dense, which may obscure small masses. FINDINGS: A new biopsy marker clip is seen within the biopsied mass in the left 2:00 breast. No sig nificant postbiopsy hematoma is seen. IMPRESSION: POST PROCEDURE IMAGING FOR MARKER PLACEMENT New biopsy marker clip status post ultrasound guided biopsy of the left 2:00 breast mass. Pathology results are pending. Approximately 10% of breast cancers are not detected with mammography. A negative mammographic report should not delay biopsy if a clinically suggestive mass is present. Analilia Purdy M.D. ah/:11/04/2016 09:23:19 Resizer Operator: Rebecca JOHN(Jovani)(M), [facility] BI-RADS Code: Post Procedure Imaging For Marker Placement
--- NOTE | 2016-11-04 15:17 | MAMMOGRAPHY REPORT ---
THIS REPORT HAS BEEN AMENDED. ULTRASOUND GUIDED BIOPSY LEFT BREAST: 11/04/2016 CLINICAL HISTORY: Left 2 o'clock breast mass. PATIENT CONSENT: The procedure, risks and benefits were discussed with the patient and informed writt en consent was obtained. A timeout was performed immediately prior to the procedure. PROCEDURE DESCRIPTION: With ultrasound guidance, aseptic technique, and lidocaine as the local anesth etic (1% lidocaine to anesthetize the skin and 1% lidocaine with epinephrine to anesthetize the deepe r tissues), the mass of concern in the left 2:00 breast was sampled 4 times with a 14-gauge Achieve b iopsy needle. Immediately thereafter, with ultrasound guidance, aseptic technique, and lidocaine as the local anesthetic, a metallic localizer clip was placed into the mass. Direct pressure was applie d to the site immediately post procedure and hemostasis was achieved. Postprocedure unilateral mammo grams were performed to confirm placement of the clip in the expected location of the breast mass. T he patient tolerated the procedure without complication. She was given wound care instructions. The specimens were sent to pathology for analysis. COMPARISON: Comparison is made to exams dated: 10/27/2016 ultrasound and 10/15/2016 mammogram - [facility]. IMPRESSION: ULTRASOUND GUIDED BIOPSY Ultrasound guided core needle biopsy of the left 2:00 breast mass, with clip placement. The patient will receive pathology results from her referring provider. Analilia Purdy M.D. ah/:11/04/2016 09:21:15 Business Performance Analyst: Rebecca FORRESTER)(Sarahi), [facility] AMENDMENT: 11/11/2016 Analilia Purdy M.D. Pathology from ultrasound-guided biopsy of a left 2:00 breast mass was reviewed on 11/11/2016. The pa thology shows a benign tubular proliferation with features of a tubular adenoma. Findings are benign and concordant with the imaging appearance. Recommend short interval follow-up diagnostic tomosynth esis mammograms and possible ultrasound of the left breast in 6 months to confirm stability.
== END | disposition home or self-care (01) ==
LOC: C.MAMM 08:50
PROVIDERS: ATTEND Nurse Practitioner
DX: N63 Unspecified lump in breast (principal); N60.82 Other benign mammary dysplasias of left breast

== ENCOUNTER 2017-01-24 12:43 | Emergency (ER) | payer OTHER ==
[~2017-01-24] VITALS: Ht 162.6 cm; Wt 73.5 kg
[2017-01-24 12:53] VITALS: TEMP 36.6; Ht 162.6 cm; Wt 73.5 kg
[2017-01-24] MEDS ORDERED: HYDROCODONE/ACETAMOPHEN 5/325MG TAB PO STA (13:09)
[2017-01-24] MEDS ORDERED: VNTHFA/IN INH (13:20)
--- NOTE | 2017-01-24 13:38 | DIAGNOSTIC IMAGING REPORT ---
R HAND MIN 3 VIEWS ROUTINE HISTORY: 51 years-old Female hand injury acute right hand pain status post trauma COMPARISON: Right hand radiographs 04/20/2016 TECHNIQUE: 3 views of the right hand FINDINGS: No acute fracture, dislocation or significant degenerative changes. Soft tissues are unremarkable without opaque foreign body. IMPRESSION: No acute fracture, dislocation or significant degenerative changes. The above report was generated using voice recognition software. It may contain grammatical, syntax or spelling errors. Electronically signed by: Uriel Lu M.D. 01/24/2017 1:37 PM Dictated Date/Time: 01/24/2017 1:36 PM
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
[2017-01-24 13:55] VITALS: BP 118/86; PULSE 89; O2SAT 96
== END 2017-01-24 13:54 | disposition home or self-care (01) ==
LOC: C.EDB 12:45 → C.EDD 13:54
DX: S60.221A Contusion of right hand, initial encounter (principal); W51.XXXA Accidental striking against or bumped into by another person, initial encounter; N80.9 Endometriosis, unspecified; Z90.710 Acquired absence of both cervix and uterus